=== PATIENT | female | born 1965 | race Caucasian/White ===

== ENCOUNTER → 2018-09-19 15:19 | Outpatient (CLI) | payer MEDICAID, SELFPAY ==
--- NOTE | 2018-09-19 15:39 | MRI_ITS ---
STUDY: MRI OF THE LEFT LOWER EXTREMITY WITHOUT AND WITH CONTRAST REASON FOR EXAM: Female, 53 years old. 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 Follow-up. Evaluate for recurrence. TECHNIQUE: Multisequence multiplanar imaging of the left thigh was obtained before and after the administration of 10 cc of Gadavist contrast intravenously. COMPARISON: Prior MRI of the left femur dated August 08, 2017. FINDINGS: There is stable scar tissue in the medial aspect of the thigh at the site of the prior resection (axial series 11 images 3-16). The hypointense nonenhancing nodule in the medial aspect of the upper thigh is stable and likely related to scarring (axial series 11 images 2-70). There is stable minimal edema of the obturator muscles and adductor muscles with superficial subcutaneous soft tissue edema unchanged (axial series 11 images 2-14). The remainder of the subcutaneous soft tissues, muscles and osseous structures are normal. MRI/Lower Ext No Joint W/WO Cont IMPRESSION: Stable post surgical changes with no evidence of recurrence. Electronically Signed: Brandan Torres MD at 15:49 EST , Service support ,
== END ==
PROVIDERS: Family Provider Family Medicine; PCP Family Medicine; Referring Provider Orthopaedic Surgery; Visit Provider Orthopaedic Surgery
DX: C49.22 Malignant neoplasm of connective and soft tissue of left lower limb, including hip (principal)
CPT/HCPCS: 73720; A9585; A4216

== ENCOUNTER → 2019-06-26 12:49 | Outpatient (CLI) | payer MEDICAID, SELFPAY ==
--- NOTE | 2019-06-26 13:03 | CT_ITS ---
STUDY: CT CHEST WITHOUT CONTRAST REASON FOR EXAM: Female, 54 years old. LT THIGH SARCOMA removed in 2016 with radiation treatments following removal. RADIATION DOSAGE (If Supplied By Facility): CTDIvol = ( 9.35 ) mGy, DLP = ( 306.02 ) mGycm TECHNIQUE: Transaxial imaging was performed without the administration of intravenous contrast material. Individualized dose optimization techniques were used for this CT. COMPARISON: 12/22/2015, 08/08/2017 FINDINGS: The lungs are normal. No dominant mass or nodule. No focal infiltrate. There is no demonstrated pleural abnormality. Normal heart and pericardium. Normal mediastinum. Normal hilar regions. Normal unenhanced pulmonary arteries. Normal aorta arch and descending thoracic aorta. Normal osseous structures. There is no demonstrated acute abnormality of the visualized upper abdomen. Stable 2.9 cm probable cyst of the liver. CT/Chest without Contrast IMPRESSION: Normal unenhanced CT Chest examination. Electronically Signed: Gonzales Parker MD at 17:12 EDT , Service support ,
== END ==
PROVIDERS: Family Provider Family Medicine; PCP Family Medicine; Referring Provider Orthopaedic Surgery; Visit Provider Orthopaedic Surgery
DX: C49.22 Malignant neoplasm of connective and soft tissue of left lower limb, including hip (principal)
CPT/HCPCS: 71250

== ENCOUNTER 2019-10-15 09:10 | Emergency (ER) | payer MEDICAID, SELFPAY ==
[2019-10-15 09:11] VITALS: BP 136/82; PULSE 77; RESP 116; TEMP 36.7; O2SAT 96; BMI 27.2
--- NOTE | 2019-10-15 09:44 | ED.VISSUMM ---
- ER Visit Summary Date of Service: 10/15/19 Chief Complaint: Cough sore throat History of Present Illness: The patient is a 54 F history of prior cancer and anemia. Patient's had cough for last 3 days. Both of her nephews had similar symptoms. She denies any fever or chills. No trouble breathing. No vomiting or diarrhea. Physical Examination: Middle-aged female no acute distress vital signs are stable afebrile. Pulse ox 96% on room air no signs of hypoxia. H EENT exam normal. Posterior pharynx without erythema or exudate. No trouble swallowing or breathing. TMs normal. Neck nontender no lymphadenopathy. Lungs clear to auscultation bilaterally few scattered wheezes that clear.. Heart regular rhythm no murmur. Abdomen soft and nontender. Extremities moves all 4. Calves nontender without edema. Neurologically she is awake and alert. Test Results: None Emergency Department Course and Treatment: Patient has a viral URI. She does not need antibiotics. She does not need imaging. Treatment Plan: Prednisone as needed if the wheezing worsens. Otherwise treat as a virus. Fluids and rest. Disposition: Discharge Impression: Viral URI This note was generated with [employer] dictation software. It may contain incorrect words, spelling, and punctuation that were not noted in review of the chart prior to signing ED Disposition - Plan for ED Patient: Referrals: Julio Lynch DO [Primary Care Provider] -
--- NOTE | 2019-10-15 09:46 | ED.DEP ---
ED Disposition - Plan for ED Patient: Disposition: Home or Assisted Living Instructions: URI, Viral w/ Wheezing (Adult) Prescriptions: Prednisone [Deltasone] 40 mg PO DAILY 7 Days tab Prescription Printed Referrals: Julio Lynch DO [Primary Care Provider] - 1 Week if not improving Additional Instructions: Fluids and rest. Prednisone only if needed if wheezing worsens or shortness of breath.
[2019-10-15 10:13] VITALS: BP 136/82; PULSE 77; RESP 116; TEMP 36.7; O2SAT 96
== END 2019-10-15 10:15 | disposition home or self-care (01) ==
PROVIDERS: Emergency Provider Emergency Medicine; Family Provider Family Medicine; PCP Family Medicine
DX: J06.9 Acute upper respiratory infection, unspecified (principal)
CPT/HCPCS: 99282

== ENCOUNTER → 2020-06-23 | Outpatient (CLI) | payer MEDICARE, MEDICAID, SELFPAY ==
--- NOTE | 2020-06-23 07:57 | CT_ITS ---
STUDY: CT CHEST WITHOUT CONTRAST REASON FOR EXAM: Female, 55 years old. Left thigh sarcoma RADIATION DOSAGE (If Supplied By Facility): CTDIvol = ( 8.23 ) mGy, DLP = ( 273.47 ) mGycm TECHNIQUE: Transaxial imaging was performed without the administration of intravenous contrast material. Coronal and sagittal reformatted images were created. Individualized dose optimization techniques were used for this CT. COMPARISON: Multiple prior studies, with the most recent being 06/26/19. FINDINGS: There are no pulmonary infiltrates or pleural effusions. There are no pulmonary nodules or masses. There is no pneumothorax. The heart and pericardium are within normal limits. There is no thoracic lymphadenopathy. There is no evidence of thoracic aortic aneurysm. Images through the upper abdomen demonstrate no significant abnormality. There are no destructive osseous lesions. CT/Chest without Contrast IMPRESSION: Unremarkable noncontrast CT of the chest. Electronically Signed: Thierno Alas, at 17:06 EDT Tel , Service support ,
== END | disposition home or self-care (01) ==
LOC: CT 07:56
PROVIDERS: PCP Family Medicine; Referring Provider Orthopaedic Surgery; Visit Provider Orthopaedic Surgery
DX: C49.22 Malignant neoplasm of connective and soft tissue of left lower limb, including hip (principal)
CPT/HCPCS: 71250

== ENCOUNTER → 2021-03-26 14:15 | Outpatient (CLI) | payer MEDICARE, MEDICAID, SELFPAY ==
--- NOTE | 2021-03-26 14:20 | CT_ITS ---
STUDY: CT CHEST WITHOUT CONTRAST REASON FOR EXAM: Female, 56 years old. Chest pain/pressure RADIATION DOSAGE (If Supplied By Facility): CTDIvol = ( 5.53 ) mGy, DLP = ( 181.41 ) mGycm TECHNIQUE: Transaxial imaging was performed without the administration of intravenous contrast material. Individualized dose optimization techniques were used for this CT. COMPARISON: 06/23/2020 FINDINGS: The lungs are normal. There is no demonstrated pleural abnormality. Normal heart and pericardium. Normal mediastinum. Normal hilar regions. Normal unenhanced pulmonary arteries. Normal aorta arch and descending thoracic aorta. Normal osseous structures. Limited cuts through the upper abdomen show simple hepatic cyst CT/Chest without Contrast IMPRESSION: No acute pulmonary process No suspicious noncalcified mass or nodule No suspicious adenopathy Simple hepatic cyst, no specific follow-up needed Electronically Signed: Isma Rodas MD at 14:42 EDT , Service support ,
== END ==
PROVIDERS: PCP Family Medicine; Referring Provider Orthopaedic Surgery; Visit Provider Orthopaedic Surgery
DX: C49.22 Malignant neoplasm of connective and soft tissue of left lower limb, including hip (principal)
CPT/HCPCS: 71250

== ENCOUNTER 2022-02-17 13:58 | Inpatient (IN) | payer MEDICARE, MEDICAID, SELFPAY ==
[2022-02-17] VITALS (8 sets, daily range): BP systolic 103–119; BP diastolic 53–79; PULSE 108–120; RESP 16–28; TEMP 37.2–39.5; O2SAT 96–100; BMI 27.2; BMI 29.5
--- NOTE | 2022-02-17 14:11 | EKG12_ITS ---
Test Reason : R LEG PAIN Blood Pressure : / mmHG Vent. Rate : 108 BPM Atrial Rate : 108 BPM P-R Int : 122 ms QRS Dur : 112 ms QT Int : 338 ms P-R-T Axes : 051 037 017 degrees QTc Int : 452 ms Sinus tachycardia Nonspecific ST abnormality Abnormal ECG Confirmed by MIKALA HAM, GINA ([id number]), publication editor CLAY BAUTISTA ([id number]) on 02/21/2022 1:51:37 PM Referred By: NATHEN/DENISSE Confirmed By:KELSEA BACH MD
--- NOTE | 2022-02-17 14:13 | EX.ED.DYSGE1 ---
HPI History of Present Illness Chief Complaint: Fever Detail of Chief Complaint: Fever, erythematous left lower extremity not feeling well Informant: patient Onset/Context/Timing Onset: Today (Noted erythematous left lower extremity) and Days (Illness started Monday) Context: Sudden Onset Timing: Continuous Quality: Infectious symptoms starting Monday and rash L LE today Location: Left lower extremity, thigh and leg excluding foot Current Severity: Moderate Maximum Severity: Moderate Worsened by: Unknown Relieved by: Nothing Associated Symptoms Associated Symptoms: Nausea and vomiting x1 today Narrative Narrative: Is a 57-year-old woman with history of soft tissue neoplasm that was resected several years ago proximal medial left thigh. She states she has had cellulitis one prior time. She states she did not feel well on Monday. She says Monday she had a good day. Today she again did not feel well and noted that her left lower extremity was red. She states her leg is always swollen. Is slightly more swollen at this time. She denies headache, visual, ocular auditory symptoms. She denies cough or shortness of breath. She denies dysuria, frequency, urgency or hematuria. She reports allergy to penicillin. Her allergy is not truly an allergy however patient is insistent that this represents an allergy. Prior similar symptoms: Yes Recent Illness/Hospitalization: No [facility] Medical History (Updated 02/17/22 @ 15:[address] 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 Ck Mercedes MD) household members: spouse Smoking Status: Unknown if ever smoked substance use type: does not use ROS ROS ED Constitutional Constitutional ED: Reports chills, fever(s) and sweats; Denies weight loss Eyes Eyes: Denies blurry vision, change in vision or diplopia ENT ENT ED: Denies ear pain, rhinorrhea or sore throat Cardiovascular Cardiovascular: Denies chest pain, palpitations or racing heartbeat Respiratory/Chest Respiratory/Chest: Denies cough, dyspnea or dyspnea on exertion Gastrointestinal Gastrointestinal: Reports nausea and vomiting; Denies abdominal pain, constipation, diarrhea or melena Genitourinary Genitourinary ED: Denies dysuria, hematuria or urinary frequency Musculoskeletal Musculoskeletal: Reports other Details: Swollen left lower extremity with erythema ; Denies arthralgias, back pain, myalgias or neck pain Integumentary Reports rash and other Details: Rash involves most of the leg and part of the thigh. ; Denies abscess or Abrasions Neurologic Neurologic: Reports weakness; Denies headache(s) or paresthesias Endocrine Endocrinology: Denies polydipsia, polyphagia or polyuria Hematologic/Lymphatic Hematologic/Lymphatic: Denies anemia, easy bleeding, easy bruising or lymphadenopathy EXAM Physical Exam Const Vital Signs: 02/17/22 14:00 02/17/22 14:05 02/17/22 14:14 Temperature 101.5 F H Temperature Source Temporal Pulse Rate 118 H Respiratory Rate 16 Respiratory Effort Normal Respiratory Pattern Normal Blood Pressure 117/79 Blood Pressure Mean 91 Pulse Ox 98 100 Oxygen Delivery Method Room Air Room Air 02/17/22 14:30 02/17/22 14:59 Temperature 102.1 F H Temperature Source Oral Pulse Rate 109 H Respiratory Rate 28 H Respiratory Effort Respiratory Pattern Blood Pressure 104/65 Blood Pressure Mean 78 Pulse Ox 98 Oxygen Delivery Method Room Air Positive well nourished and well developed General Appearance ED: well developed, NAD and pallor; Negative for cyanotic or diaphoretic HEENT Reports TM's clear and dry mucous membranes Negative for trauma or tenderness Tympanic Membrane ED: Yes TM's clear Mouth ED: Yes dry mucous membranes Mouth: dry mucous membranes Eyes PERRL and EOMs intact bilaterally General Eye ED: Negative for pale conjunctiva or scleral icterus Neck no lymphadenopathy, supple and no JVD Chest Wall palpation of chest normal Resp normal respiratory effort and clear to auscultation bilaterally Effort and Inspection: Negative for pain with movement Cardio regular rhythm, S1 normal heart sound, S2 normal heart sound and no murmurs Rate: tachycardic GI normal to inspection, nondistended, normoactive bowel sounds, non-tender and non-distended Palpation: soft Back/Spine no CVA tenderness Cervical Spine: Negative for cervical spine tenderness Thoracic Spine / Upper Back: Negative for thoracic spinal tenderness or paraspinal muscle tenderness Extremity Negative for normal to inspection Extremity Narrative: There is nephric and erythema warmth of the left lower extremity. There is surgical scar which is well-healed. There is shotty inguinal lymphadenopathy noted. There is no fluctuance. There is no lymphangitis. There is pallor of the left foot. There is a palpable DP pulse. Unable to appreciate a PT pulse. General Extremety ED: Yes edema and other findings; Negative for tenderness General Extremity: edema and other findings Neuro oriented x3, CN's II-XII intact bilaterally and no sensory deficits noted Sensorium / Orientation: alert Motor Exam: strength 5/5 throughout Psych mental status grossly normal Skin No no rashes or lesions noted, no wounds and skin turgor normal General Skin Exam: pallor; Negative for jaundice MDM MDM MDM Narrative Medical decision making narrative: Patient presents with infectious source and tachycardia. She is febrile however since her temperature is not greater than 102 she only has 1 sirs criteria. Findings are not consistent with DVT. Findings are consistent with cellulitis. Patient was treated with cefepime since she reports allergy to penicillin. Since there is no prior history of MRSA and there is no concern presently for MRSA vancomycin was not administered. I was informed by nursing staff that blood pressure is approximate 100. Second liter of normal saline was ordered. This will be equivalent to 30 cc/kg. I was informed by the hospitalist Dr. Tarun dubon that she is not considered severe sepsis because she has a Medicare advantage program type insurance and requested admission to [facility]. Lab Data Attestation: I reviewed the patient's lab results. Lab results narrative: White count is elevated with shift. There is no bandemia. Lactate is elevated 2.4. Since patient has total of 4 SIRS criteria with source elevated lactate she has severe sepsis without endorgan dysfunction. Creatinine is elevated for patient at 1.04 and approximately double baseline however per CMS criteria is not considered endorgan dysfunction. Labs: Laboratory Results - last 24 hr 02/17/22 02/17/22 02/17/22 14:30 14:30 14:30 WBC 15.1 H RBC 4.79 Hgb 14.1 Hct 41.7 MCV 87.1 MCH 29.4 MCHC 33.8 RDW Std Deviation 41.0 RDW Coeff of Kehinde 12.8 Plt Count 294 MPV 9.3 Immature Gran % (Auto) 0.500 Neut % (Auto) 93.7 H Lymph % (Auto) 2.7 L [place] % (Auto) 3.0 Eos % (Auto) 0.0 Baso % (Auto) 0.1 Absolute Neuts (auto) 14.2 H Absolute Lymphs (auto) 0.41 L Nucleated RBC % 0 Differential Comment Platelet Estimate ADEQUATE RBC Morphology NORM C+C PT INR APTT Sodium 138 Potassium 3.1 L Chloride 103 Carbon Dioxide 27.0 Anion Gap 8 BUN 17 Creatinine 1.04 H Estim Creat Clear Calc 57.69 Est GFR (MDRD) Af Amer 70 Est GFR (MDRD) Non-Af 58 L BUN/Creatinine Ratio 16.3 Glucose 112 H Lactic Acid 2.4 H* Calcium 9.0 Total Bilirubin 1.10 H AST 74 H ALT 83 H Alkaline Phosphatase 119 H Total Protein 7.8 Albumin 3.7 Globulin 4.1 Albumin/Globulin Ratio 0.9 02/17/22 14:40 WBC RBC Hgb Hct MCV MCH MCHC RDW Std Deviation RDW Coeff of Kehinde Plt Count MPV Immature Gran % (Auto) Neut % (Auto) Lymph % (Auto) [place] % (Auto) Eos % (Auto) Baso % (Auto) Absolute Neuts (auto) Absolute Lymphs (auto) Nucleated RBC % Differential Comment Platelet Estimate RBC Morphology PT 13.9 INR 1.1 APTT 23.7 L Sodium Potassium Chloride Carbon Dioxide Anion Gap BUN Creatinine Estim Creat Clear Calc Est GFR (MDRD) Af Amer Est GFR (MDRD) Non-Af BUN/Creatinine Ratio Glucose Lactic Acid Calcium Total Bilirubin AST ALT Alkaline Phosphatase Total Protein Albumin Globulin Albumin/Globulin Ratio EKG Initial EKG: Attestation: I personally reviewed and interpreted this EKG as follows: Interpretation: Sinus Tachycardia (Ventricular rate is 108. There is no ossific ST-T wave changes noted. SD interval is 122 ms. QRS duration is prolonged at 112 ms. QT interval is 338 ms. Epps is normal. Patient has what appears to be in incomplete right bundle branch block.) Critical Care Time Critical Care Time: Yes Critical care time (excluding procedures): 30-74 minutes (32 minutes), Including time spent: (History, physical, review of prior records, documentation, interpretation laboratory results initiation of treatment for severe sepsis), Discussing w/Patient &/or Family/[employer]le [employer], Discussing w/Consultants and Arranging Admission or Transfer Discharge Plan Dx/Rx/DC Orders Clinical Impression: Cellulitis of left lower extremity without foot, Severe sepsis, Acute hypotension Disposition Disposition: Acute Care Hospital [facility]
[2022-02-17] MEDS: 0.9% Normal Saline 1,000 ML 999 ML IV (14:27)
[2022-02-17] MEDS: Acetaminophen 325 MG Tablet 650 MG PO ×2 (14:29→22:10)
[2022-02-17 14:46] LABS: Absolute Lymphocyte Count 0.41 X10^3/uL (0.83-4.51); Absolute Neutrophil Count 14.2 X10^3/uL (2.0-7.7); Basophil# 0.02 X10^3/uL; Basophil% 0.1 % (0-1); Hematocrit 41.7 % (37-47); Hemoglobin 14.1 g/dL (12.0-15.0); Lymphocyte # 0.41 X10^3/ul (0.83-4.51); Lymphocyte % 2.7 % (19-41); Mean Corp Hgb Conc 33.8 g/dL (32-36); Mean Corpuscular Hgb 29.4 pg (27.0-32.0); Mean Corpuscular Volume 87.1 fL (81-99); Mean Platelet Vol. 9.3 fl (6.2-12.0); Monocyte# 0.46 X10^3/uL; NRBC Flagged by Analyzer 0 % (0-5); Neutrophil # 14.15 X10^3/uL (2.7-7.7); Neutrophil % 93.7 % (47-70); POSITIVE DIFFERENTIAL YES; Platelet Count 294 K/mm3 (150-450); RBC Distribution Width CV 12.8 % (11.6-14.6); Red Blood Count 4.79 M/mm3 (4.2-5.4); White Blood Count 15.1 K/mm3 (4.4-11.0)
[2022-02-17 15:02] LABS: Differential Indicated SCAN CRITERIA MET
[2022-02-17 15:08] LABS: ALB/GLOB Ratio 0.9 RATIO (0.9-2.4); AST(SGOT) 74 U/L (15-37); Alanine Aminotransfer ALT/SGPT 83 U/L (13-56); Albumin, Serum 3.7 g/dL (3.2-5.0); Alkaline Phosphatase 119 U/L (45-117); Anion Gap 8 (5-15); BUN 17 mg/dL (7-18); BUN/Creat Ratio 16.3 RATIO (10-20); Chloride 103 mmol/L (98-107); Creatinine, Serum 1.04 mg/dL (0.55-1.02); EST Glomerular Filtration Rate 58 mL/min (>60); Est Glom Filt Rate - Afr Amer 70 mL/min (>60); Estimated Creatinine Clearance 57.69 ml/min; Globulin 4.1 g/dL (2.2-4.2); Glucose 112 mg/dL (74-106); Potassium 3.1 mmol/L (3.5-5.1); Protein, Total 7.8 g/dL (6.4-8.2); Sodium Level 138 mmol/L (136-145)
[2022-02-17 15:10] LABS: International Normalized Ratio 1.1; Prothrombin Time (Protime)PT. 13.9 SECONDS (11.7-14.9)
[2022-02-17 15:12] LABS: Partial Thromboplast Time 23.7 Seconds (24.1-36.2)
[2022-02-17 15:15] LABS: Platelet Estimate ADEQUATE (ADEQ); Red Cell Morphology NORM C+C NORMAL (NORM C&C)
[2022-02-17 15:30] LABS: Lactic Acid 2.4 mmol/L (0.4-1.9)
[2022-02-17] MEDS: 0.9% Normal Saline 1,000 ML 1000 ML IV (15:44)
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
--- NOTE | 2022-02-17 16:56 | VDLE_ITS ---
Reason For Study: Swelling RIGHT LEFT CFV is compressible, spontaneous, phasic, GSV is normal. competent and demonstrates normal CFV is compressible, spontaneous, phasic, augmentation. competent, and demonstrates normal Procedure augmentation. This is a venous duplex using B-mode, color FV is compressible, spontaneous, phasic, flow and spectral Doppler. competent and demonstrates normal Exam performed portable in patient room. augmentation. A preliminary report was called and/or faxed POP V is compressible, spontaneous, phasic, to MS3. competent and demonstrates normal augmentation. T/P Trunk is compressible. PTV is compressible. LT PerV is compressible. VL/Venous Duplex US, Unilateral Interpretation Summary There is no evidence of left lower extremity deep vein thrombosis. Left great s aphenous vein appears patent and compressible segmentally. Normal flow patterns right common femoral vein Ordering Physician: Manny Dewey Referring Physician: Julio Lynch Performed By: Dayami Adamson, KIMBER, RVT
[2022-02-17] MEDS: 0.9% Normal Saline 1,000 ML 125 ML IV ×2 (17:31→22:03)
[2022-02-17] MEDS: Cefazolin 1 GM/50 ML BAG IV (18:10)
[2022-02-17 18:40] LABS: Reflex Lactate? Y
[2022-02-17] MEDS: Potassium Chloride Oral Tablet 20 MEQ 60 MEQ PO (18:51)
[2022-02-17 19:11] LABS: Bacteria 0 SEEN /hpf (None Seen); Mucous, Urine 0 SEEN /hpf (<or=2+); Red Blood Cells-Urine 0 SEEN /hpf (0-5); Squamous Epithelial Cells - UA 0 SEEN /hpf (5-10); White Blood Cells 0 SEEN /hpf (0-5)
[2022-02-17 19:41] LABS: Color, Urine Yellow (Yellow); Glucose, Dipstick Normal (Normal); Ketone-Dipstick Negative (Negative); Leukocyte Esterase-Dipstick Negative /ul (Negative); Nitrite-Dipstick Negative (Negative); Occult Blood-Urine 25 /ul (Negative); Protein-Dipstick Negative (Negative); Urine Bilirubin Dipstick Negative (Negative); Urine Clarity Clear (Clear); Urine Urobilinogen Normal (Normal)
[2022-02-17] MEDS: Ondansetron 4 MG/2 ML Vial IV (20:46)
[2022-02-18] VITALS (8 sets, daily range): BP systolic 113–121; BP diastolic 57–86; PULSE 94–115; RESP 18; TEMP 37.6–39.3; O2SAT 97–100
[2022-02-18] MEDS: Cefazolin 1 GM/50 ML BAG IV ×4 (00:48→21:06)
[2022-02-18] MEDS: Acetaminophen 325 MG Tablet 650 MG PO ×3 (04:06→21:06)
[2022-02-18] MEDS: 0.9% Normal Saline 1,000 ML 125 ML IV (05:17)
[2022-02-18 05:51] LABS: Absolute Lymphocyte Count 0.84 X10^3/uL (0.83-4.51); Absolute Neutrophil Count 20.7 X10^3/uL (2.0-7.7); Basophil# 0.05 X10^3/uL; Basophil% 0.2 % (0-1); Hematocrit 32.5 % (37-47); Hemoglobin 10.8 g/dL (12.0-15.0); Lymphocyte # 0.84 X10^3/ul (0.83-4.51); Lymphocyte % 3.8 % (19-41); Mean Corp Hgb Conc 33.2 g/dL (32-36); Mean Corpuscular Hgb 28.6 pg (27.0-32.0); Mean Corpuscular Volume 86.2 fL (81-99); Mean Platelet Vol. 9.2 fl (6.2-12.0); Monocyte# 0.47 X10^3/uL; Monocyte% 2.1 % (0-10); NRBC Flagged by Analyzer 0 % (0-5); Neutrophil # 20.68 X10^3/uL (2.7-7.7); POSITIVE DIFFERENTIAL YES; Platelet Count 265 K/mm3 (150-450); RBC Distribution Width SD 40.6 fl (35.1-43.9); Red Blood Count 3.77 M/mm3 (4.2-5.4); White Blood Count 22.3 K/mm3 (4.4-11.0)
[2022-02-18 06:07] LABS: Differential Indicated SCAN CRITERIA MET
[2022-02-18 06:10] LABS: Lactic Acid 1.1 mmol/L (0.4-1.9)
[2022-02-18 06:18] LABS: Anion Gap 6 (5-15); BUN 15 mg/dL (7-18); BUN/Creat Ratio 18.7 RATIO (10-20); Calcium,Total 7.6 mg/dL (8.5-10.1); Chloride 111 mmol/L (98-107); EST Glomerular Filtration Rate 78 mL/min (>60); Est Glom Filt Rate - Afr Amer 95 mL/min (>60); Estimated Creatinine Clearance 81.33 ml/min; Glucose 118 mg/dL (74-106); Potassium 3.4 mmol/L (3.5-5.1); Sodium Level 139 mmol/L (136-145)
[2022-02-18 06:21] LABS: Differential Comment SCANNED
--- NOTE | 2022-02-18 08:02 | PN.HOSP_ITS ---
Subjective Subjective Follow-up on severe sepsis/left lower extremity cellulitis: Patient was seen and examined. She complains of frequent stools. She has had 2 bowel movements today. Denies any fever or chills. Erythema of the left lower extremity is improving. Objective Data Objective Data Vital Signs: Vital Signs Temp Pulse Resp BP Pulse Ox 99.9 F H 105 H 18 113/60 97 02/18/22 06:41 02/18/22 05:18 02/18/22 03:49 02/18/22 03:49 02/18/22 05:18 Oxygen Delivery Method Room Air Weight: 66.4 kg Body Mass Index (BMI) 29.5 Intake & Output: Intake and Output for Last 24 Hours 02/16/22 02/17/22 02/18/22 23:59 23:59 23:59 Intake Total 2839.58 / 2839.58 1091.67 / 1091.67 Balance 2839.58 / 2839.58 1091.67 / 1091.67 Lab / Micro Data Result Diagrams: 02/18/22 05:35 02/18/22 05:35 Labs: Laboratory Results - last 24 hr 02/17/22 14:30: WBC 15.1 H, RBC 4.79, Hgb 14.1, Hct 41.7, MCV 87.1, MCH 29.4, MCHC 33.8, RDW Std Deviation 41.0, RDW Coeff of Kehinde 12.8, Plt Count 294, MPV 9.3, Immature Gran % (Auto) 0.500, Neut % (Auto) 93.7 H, Lymph % (Auto) 2.7 L, [place] % (Auto) 3.0, Eos % (Auto) 0.0, Baso % (Auto) 0.1, Absolute Neuts (auto) 14.2 H, Absolute Lymphs (auto) 0.41 L, Nucleated RBC % 0, Differential Comment , Platelet Estimate ADEQUATE, RBC Morphology NORM C+C 02/17/22 14:30: Sodium 138, Potassium 3.1 L, Chloride 103, Carbon Dioxide 27.0, Anion Gap 8, BUN 17, Creatinine 1.04 H, Estim Creat Clear Calc 57.69, Est GFR (MDRD) Af Amer 70, Est GFR (MDRD) Non-Af 58 L, BUN/Creatinine Ratio 16.3, Glucose 112 H, Calcium 9.0, Total Bilirubin 1.10 H, AST 74 H, ALT 83 H, Alkaline Phosphatase 119 H, Total Protein 7.8, Albumin 3.7, Globulin 4.1, Albumin/Globulin Ratio 0.9 02/17/22 14:30: Lactic Acid 2.4 H* 02/17/22 14:40: PT 13.9, INR 1.1, APTT 23.7 L 02/17/22 18:45: Urine Color Yellow, Urine Clarity Clear, Urine pH 5.0, Ur Specific [place] 1.010, Urine Protein Negative, Urine Glucose (UA) Normal, Urine Ketones Negative, Urine Occult Blood 25 H, Urine Nitrite Negative, Urine Bilirubin Negative, Urine Urobilinogen Normal, Ur Leukocyte Esterase Negative, Urine RBC 0 SEEN, Urine WBC 0 SEEN, Ur Squamous Epith Cells 0 SEEN, Urine Bacteria 0 SEEN, Urine Mucus 0 SEEN 02/18/22 05:35: WBC 22.3 H, RBC 3.77 L, Hgb 10.8 L, Hct 32.5 L, MCV 86.2, MCH 28.6, MCHC 33.2, RDW Std Deviation 40.6, RDW Coeff of [place]hind[place] 13.0, Plt Count 265, MPV 9.2, Immature Gran % (Auto) 0.900, Neut % (Auto) 93.0 H, Lymph % (Auto) 3.8 L, [place] % (Auto) 2.1, Eos % (Auto) 0.0, Baso % (Auto) 0.2, Absolute Neuts (auto) 20.7 H, Absolute Lymphs (auto) 0.84, Nucleated RBC % 0, Differential Comment SCANNED 02/18/22 05:35: Sodium 139, Potassium 3.4 L, Chloride 111 H, Carbon Dioxide 22.0, Anion Gap 6, BUN 15, Creatinine 0.80, Estim Creat Clear Calc 81.33, Est GFR (MDRD) Af Amer 95, Est GFR (MDRD) Non-Af 78, BUN/Creatinine Ratio 18.7, Glucose 118 H, Calcium 7.6 L 02/18/22 05:35: Lactic Acid 1.1 Physical Exam Narrative Physical exam: General: Alert, Oriented x3, Cooperative, No apparent distress HEENT: Atraumatic Oral: Moist Mucosa Neck: Supple Lungs: Diminished to auscultation Cardiovascular: HS I+II, regular, no murmurs Abdomen: Anterior abdominal wall erythema and edema, Bowel Sounds Present, Soft, Non Tender Extremities: Left lower extremity redness and differential warmth, improving, not worse beyond the skin markings Assessment & Plan Assessment/Plan (1) Cellulitis of left lower extremity without foot: (2) Severe sepsis: PLAN: 1. Severe sepsis from left lower extremity cellulitis, improved Improved on IVF, continue on Cefazolin Doppler USG of LLE is pending 2. ANGEL, pre-renal secondary to #1 Admitting creatinine was 1.04, creatinine of 0.8 Repeat blood work in a.m. 3. Hypokalemia, replaced, recheck in am 4. DVT PPx- Lovenox SC Charges/Coding Visit Charges Inpatient E&M: 27687 Subs Hosp L2
[2022-02-18] MEDS: Potassium Chloride Oral Tablet 20 MEQ 40 MEQ PO (08:26)
[2022-02-18] MEDS: Enoxaparin 40 MG/0.4 ML Syringe SC (08:27)
--- NOTE | 2022-02-18 10:45 | CASEMGMT ---
RN CM JANITORIAL TECH CM to room to meet with patient for initial transition planning/care coordination assessment. RN DUSTY introduced self and role at [facility]. Pt voices understanding and consents to assessment at this time. Pt resting in bed in no distress at this time. Pt is A/O at this time and answers all questions appropriately. Care providers, pharmacy, and demographics verified/updated at this time. PCP: Dr Lynch Preferred Pharmacy: [facility] Insurance: KAI Aguillon Prescription Benefit: Yes Living Will/HPOA: States does not have LW or HCPOA . Interested in more information but states does not want to talk with SW at this time to complete paperwork. Provided information on advanced directives and given Social Service rac card with number to call if chooses in the future to utilize [facility] social work for advanced directive completion. Patient expresses understanding. LNOK: , Daniel Living Arrangements: Lives w/ in 2-story home w/no steps to enter. Denies difficulty w/stairs. Independent. Transportation: Pt states drives self and states no transportation concerns at this time. also drives. DME: Denies using any DME, other than compression stockings. Denies needs. HHC/SNF: No hx of either. No needs identified. Pt wishes to return home and states has no concerns with going home at time of discharge. CM to follow for any discharge planning/needs. Pt voices no concerns/needs at this time. Advised pt to ask for CM if any questions/concerns/needs arise. Voices understanding. PLAN: Home Torsten MENJIVAR RN, CM
[2022-02-18 13:02] LABS: Magnesium 1.3 mg/dL (1.6-2.6)
[2022-02-18 13:08] LABS: AST(SGOT) 40 U/L (15-37); Alanine Aminotransfer ALT/SGPT 55 U/L (13-56); Albumin, Serum 2.5 g/dL (3.2-5.0); Alkaline Phosphatase 83 U/L (45-117); Bilirubin, Direct 0.48 mg/dL (0.00-0.30); Globulin 3.5 g/dL (2.2-4.2)
[2022-02-19] MEDS: Acetaminophen 325 MG Tablet 650 MG PO ×2 (04:40→21:13)
[2022-02-19 04:45] VITALS: BP 124/64; PULSE 108; RESP 20; TEMP 38.5; O2SAT 98
[2022-02-19] MEDS: Cefazolin 1 GM/50 ML BAG IV (05:21)
[2022-02-19 07:43] LABS: Absolute Lymphocyte Count 1.26 X10^3/uL (0.83-4.51); Absolute Neutrophil Count 19.1 X10^3/uL (2.0-7.7); Basophil# 0.02 X10^3/uL; Basophil% 0.1 % (0-1); Hemoglobin 10.2 g/dL (12.0-15.0); Lymphocyte # 1.26 X10^3/ul (0.83-4.51); Mean Corpuscular Volume 85.2 fL (81-99); Mean Platelet Vol. 9.8 fl (6.2-12.0); Monocyte# 0.43 X10^3/uL; NRBC Flagged by Analyzer 0 % (0-5); Neutrophil # 19.14 X10^3/uL (2.7-7.7); Neutrophil % 90.8 % (47-70); Platelet Count 279 K/mm3 (150-450); RBC Distribution Width CV 13.3 % (11.6-14.6); RBC Distribution Width SD 41.7 fl (35.1-43.9); Red Blood Count 3.52 M/mm3 (4.2-5.4); White Blood Count 21.1 K/mm3 (4.4-11.0)
[2022-02-19 08:07] LABS: ALB/GLOB Ratio 0.7 RATIO (0.9-2.4); AST(SGOT) 24 U/L (15-37); Alanine Aminotransfer ALT/SGPT 37 U/L (13-56); Albumin, Serum 2.4 g/dL (3.2-5.0); Alkaline Phosphatase 92 U/L (45-117); Anion Gap 6 (5-15); BUN 11 mg/dL (7-18); BUN/Creat Ratio 16.1 RATIO (10-20); Calcium,Total 8.2 mg/dL (8.5-10.1); Chloride 109 mmol/L (98-107); Creatinine, Serum 0.68 mg/dL (0.55-1.02); EST Glomerular Filtration Rate 94 mL/min (>60); Est Glom Filt Rate - Afr Amer 114 mL/min (>60); Estimated Creatinine Clearance 95.68 ml/min; Globulin 3.5 g/dL (2.2-4.2); Glucose 99 mg/dL (74-106); Potassium 3.2 mmol/L (3.5-5.1); Protein, Total 5.9 g/dL (6.4-8.2); Sodium Level 138 mmol/L (136-145)
--- NOTE | 2022-02-19 08:14 | PN.HOSP_ITS ---
Subjective Subjective Follow-up on severe sepsis/left lower extremity cellulitis: Patient was seen and examined. She has been spiking fevers overnight. Her left lower extremity is more swollen. She denies any runny nose or cough. Objective Data Objective Data Vital Signs: Vital Signs Temp Pulse Resp BP Pulse Ox 101.3 F H 108 H 20 H 124/64 H 98 02/19/22 04:45 02/19/22 04:45 02/19/22 04:45 02/19/22 04:45 02/19/22 04:45 Oxygen Delivery Method Room Air Weight: 66.4 kg Body Mass Index (BMI) 29.5 Intake & Output: Intake and Output for Last 24 Hours 02/17/22 02/18/22 02/19/22 23:59 23:59 23:59 Intake Total 2839.58 / 2839.58 2059.59 / 2059.59 550 / 550 Balance 2839.58 / 2839.58 2059.59 / 2059.59 550 / 550 Lab / Micro Data Result Diagrams: 02/19/22 07:20 02/19/22 07:20 Labs: Laboratory Results - last 24 hr 02/18/22 05:35: Total Bilirubin 1.20 H, Direct Bilirubin 0.48 H, AST 40 H, ALT 55, Alkaline Phosphatase 83, Total Protein 6.0 L, Albumin 2.5 L, Globulin 3.5 02/18/22 05:35: Magnesium 1.3 L 02/19/22 07:20: WBC 21.1 H, RBC 3.52 L, Hgb 10.2 L, Hct 30.0 L, MCV 85.2, MCH 29.0, MCHC 34.0, RDW Std Deviation 41.7, RDW Coeff of Kehinde 13.3, Plt Count 279, MPV 9.8, Immature Gran % (Auto) 1.100 H, Neut % (Auto) 90.8 H, Lymph % (Auto) 6.0 L, [place] % (Auto) 2.0, Eos % (Auto) 0.0, Baso % (Auto) 0.1, Absolute Neuts (auto) 19.1 H, Absolute Lymphs (auto) 1.26, Nucleated RBC % 0 02/19/22 07:20: Sodium 138, Potassium 3.2 L, Chloride 109 H, Carbon Dioxide 23.0, Anion Gap 6, BUN 11, Creatinine 0.68, Estim Creat Clear Calc 95.68, Est GFR (MDRD) Af Amer 114, Est GFR (MDRD) Non-Af 94, BUN/Creatinine Ratio 16.1, Glucose 99, Calcium 8.2 L, Total Bilirubin 0.50, AST 24, ALT 37, Alkaline Ph osphatase 92, Total Protein 5.9 L, Albumin 2.4 L, Globulin 3.5, Albumin/Globulin Ratio 0.7 L Micro: Microbiology 02/17/22 18:45 Urine, Clean Catch Urine Culture - Final Culture exhibits no growth. Radiography Diagnostic Testing: Radiology Impression Venous Doppler Study 02/17/22 16:56 Interpretation Summary There is no evidence of left lower extremity deep vein thrombosis. Left great saphenous vein appears patent and compressible segmentally. Normal flow patterns right common femoral vein Ordering Physician: Manny Dewey Referring Physician: Julio Lynch Performed By: Dayami Adamson, KIMBER, RVT Physical Exam Narrative Physical exam: General: Alert, Oriented x3, Cooperative, no apparent distress HEENT: Atraumatic Oral: Moist Mucosa Neck: Supple Lungs: Diminished to auscultation Cardiovascular: HS I+II, regular, no murmurs Abdomen: Anterior abdominal wall erythema and edema, Bowel Sounds Present, Soft, Non Tender Extremities: Left lower extremity redness and differential warmth appears worse today, has moved beyond the skin markings Assessment & Plan Assessment/Plan (1) Cellulitis of left lower extremity without foot: (2) Severe sepsis: PLAN: 1. Severe sepsis from left lower extremity cellulitis Patient now spiking fever; T max 101.3F LLE looks worse today, gone beyond skin markings Doppler USG of LLE is negative WBC remains elevated at 21.1 Will increase cefazolin to 2g Q8h Will check COVID PCR, repeat blood cultures if fevers persist 2. ANGEL, pre-renal secondary to #1, resolved Admitting creatinine was 1.04, creatinine of 0.8 Repeat blood work in a.m. 3. Hypokalemia/hypomagnesemia, replaced, recheck in am 4. DVT PPx- Lovenox SC Charges/Coding Visit Charges Inpatient E&M: 60734 Subs Hosp L2
[2022-02-19 08:21] VITALS: BP 110/58; PULSE 91; RESP 18; TEMP 37.1; O2SAT 98
[2022-02-19 08:22] LABS: Magnesium 1.5 mg/dL (1.6-2.6)
[2022-02-19] MEDS: Potassium Chloride Oral Tablet 20 MEQ 40 MEQ PO (10:36)
[2022-02-19] MEDS: Enoxaparin 40 MG/0.4 ML Syringe SC (10:37)
[2022-02-19] MEDS: Cefazolin 2 GM in 0.9% Normal Saline 100 ML IV ×2 (13:18→21:14)
[2022-02-19 15:26] VITALS: BP 135/70; PULSE 86; RESP 18; TEMP 37.6; O2SAT 98
[2022-02-19 21:27] VITALS: BP 155/87; PULSE 90; RESP 18; TEMP 37.6; O2SAT 98
[2022-02-20 03:10] VITALS: BP 136/74; PULSE 77; RESP 18; TEMP 36.8; O2SAT 97
[2022-02-20 05:57] LABS: Absolute Neutrophil Count 13.3 X10^3/uL (2.0-7.7); Basophil# 0.09 X10^3/uL; Basophil% 0.5 % (0-1); Eosinophil# 0.06 X10^3/uL; Eosinophils% 0.4 % (0-5); Hematocrit 31.1 % (37-47); Hemoglobin 10.7 g/dL (12.0-15.0); Lymphocyte % 11.6 % (19-41); Mean Corp Hgb Conc 34.4 g/dL (32-36); Mean Corpuscular Hgb 28.8 pg (27.0-32.0); Mean Corpuscular Volume 83.6 fL (81-99); Monocyte% 4.9 % (0-10); NRBC Flagged by Analyzer 0 % (0-5); Neutrophil # 13.34 X10^3/uL (2.7-7.7); Platelet Count 245 K/mm3 (150-450); RBC Distribution Width CV 13.2 % (11.6-14.6); RBC Distribution Width SD 40.4 fl (35.1-43.9); Red Blood Count 3.72 M/mm3 (4.2-5.4); White Blood Count 16.5 K/mm3 (4.4-11.0)
[2022-02-20] MEDS: Cefazolin 2 GM in 0.9% Normal Saline 100 ML IV ×3 (06:18→21:50)
[2022-02-20 06:30] LABS: ALB/GLOB Ratio 0.6 RATIO (0.9-2.4); AST(SGOT) 19 U/L (15-37); Alanine Aminotransfer ALT/SGPT 25 U/L (13-56); Albumin, Serum 2.3 g/dL (3.2-5.0); Alkaline Phosphatase 103 U/L (45-117); Anion Gap 7 (5-15); BUN 8 mg/dL (7-18); BUN/Creat Ratio 15.3 RATIO (10-20); Chloride 109 mmol/L (98-107); Creatinine, Serum 0.52 mg/dL (0.55-1.02); EST Glomerular Filtration Rate 128 mL/min (>60); Est Glom Filt Rate - Afr Amer 155 mL/min (>60); Estimated Creatinine Clearance 125.12 ml/min; Globulin 3.8 g/dL (2.2-4.2); Glucose 83 mg/dL (74-106); Potassium 3.4 mmol/L (3.5-5.1); Protein, Total 6.1 g/dL (6.4-8.2); Sodium Level 137 mmol/L (136-145)
--- NOTE | 2022-02-20 07:32 | PN.HOSP_ITS ---
Subjective Subjective Follow-up on severe sepsis/left lower extremity cellulitis: Patient was seen and examined. No fevers overnight. Her left leg remains swollen but the erythema has improved. No diarrhea or nausea. Objective Data Objective Data Vital Signs: Vital Signs Temp Pulse Resp BP Pulse Ox 98.3 F 77 18 136/74 H 97 02/20/22 03:10 02/20/22 03:10 02/20/22 03:10 02/20/22 03:10 02/20/22 03:10 Oxygen Delivery Method Room Air Weight: 66.4 kg Body Mass Index (BMI) 29.5 Intake & Output: Intake and Output for Last 24 Hours 02/18/22 02/19/22 02/20/22 23:59 23:59 23:59 Intake Total 2058.59 / 2058.59 2354 / 2604 360 / 360 Balance 2058. / 2058.59 2354 / 2604 360 / 360 Lab / Micro Data Result Diagrams: 02/20/22 05:37 02/20/22 05:37 Labs: Laboratory Results - last 24 hr 02/19/22 07:20: WBC 21.1 H, RBC 3.52 L, Hgb 10.2 L, Hct 30.0 L, MCV 85.2, MCH 29.0, MCHC 34.0, RDW Std Deviation 41.7, RDW Coeff of [place]hinde 13.3, Plt Count 279, MPV 9.8, Immature Gran % (Auto) 1.100 H, Neut % (Auto) 90.8 H, Lymph % (Auto) 6.0 L, [place] % (Auto) 2.0, Eos % (Auto) 0.0, Baso % (Auto) 0.1, Absolute Neuts (auto) 19.1 H, Absolute Lymphs (auto) 1.26, Nucleated RBC % 0 02/19/22 07:20: Sodium 138, Potassium 3.2 L, Chloride 109 H, Carbon Dioxide 23.0, Anion Gap 6, BUN 11, Creatinine 0.68, Estim Creat Clear Calc 95.68, Est GFR (MDRD) Af Amer 114, Est GFR (MDRD) Non-Af 94, BUN/Creatinine Ratio 16.1, Glucose 99, Calcium 8.2 L, Total Bilirubin 0.50, AST 24, ALT 37, Alkaline Phosphatase 92, Total Protein 5.9 L, Albumin 2.4 L, Globulin 3.5, Albumin/Globulin Ratio 0.7 L 02/19/22 07:20: Magnesium 1.5 L 02/19/22 08:27: COVID-19 (BLAIR) Not Detected 02/20/22 05:37: WBC 16.5 H, RBC 3.72 L, Hgb 10.7 L, Hct 31.1 L, MCV 83.6, MCH 28.8, MCHC 34.4, RDW Std Deviation 40.4, RDW Coeff of [place]hind[place] 13.2, Plt Count 245, MPV 10.0, Immature Gran % (Auto) 1.600 H, Neut % (Auto) 81.0 H, Lymph % (Auto) 11.6 L, [place] % (Auto) 4.9, Eos % (Auto) 0.4, Baso % (Auto) 0.5, Absolute Neuts (auto) 13.3 H, Absolute Lymphs (auto) 1.90, Nucleated RBC % 0 02/20/22 05:37: Sodium 137, Potassium 3.4 L, Chloride 109 H, Carbon Dioxide 21.0, Anion Gap 7, BUN 8, Creatinine 0.52 L, Estim Creat Clear Calc 125.12, Est GFR (MDRD) Af Amer 155, Est GFR (MDRD) Non-Af 128, BUN/Creatinine Ratio 15.3, Glucose 83, Calcium 8.0 L, Total Bilirubin 0.40, AST 19, ALT 25, Alkaline Phosphatase 103, Total Protein 6.1 L, Albumin 2.3 L, Globulin 3.8, Albumin/Globulin Ratio 0.6 L Micro: Microbiology 02/17/22 14:30 Blood Culture (Wb) - Anticubital Left Blood Culture - Preliminary No growth in 48 hours. 02/17/22 14:35 Blood Culture (Wb) - Right Hand Blood Culture - Preliminary No growth in 48 hours. 02/17/22 18:45 Urine, Clean Catch Urine Culture - Final Culture exhibits no growth. Physical Exam Narrative Physical exam: General: Alert, oriented x3, cooperative, no apparent distress HEENT: Atraumatic Oral: Moist Mucosa Neck: Supple Lungs: Diminished to auscultation Cardiovascular: HS I+II, regular, no murmurs Abdomen: Anterior abdominal wall erythema and edema, improved, bowel sounds present, soft, non tender Extremities: Left lower extremity redness and differential warmth improved,erythema is almost gone but leg is swollen +1-2, some differential warmth still persists. Assessment & Plan Assessment/Plan (1) Cellulitis of left lower extremity without foot: (2) Severe sepsis: PLAN: 1. Severe sepsis from left lower extremity cellulitis, improved No more fever. COVID PCR is negative. LLE slightly improved Doppler USG of LLE is negative WBC improved to 16.5 Continue on IV cefazolin 2g Q8h 2. ANGEL, pre-renal secondary to #1, resolved Admitting creatinine was 1.04, creatinine of 0.8 Repeat blood work in a.m. 3. Hypokalemia/hypomagnesemia, replaced, recheck in am 4. DVT PPx- Lovenox SC Charges/Coding Visit Charges Inpatient E&M: 77599 Subs Hosp L2
[2022-02-20 08:41] VITALS: BP 139/75; PULSE 80; RESP 18; TEMP 36.9; O2SAT 96
[2022-02-20] MEDS: Potassium Chloride Oral Tablet 20 MEQ 40 MEQ PO ×2 (08:48→17:58)
[2022-02-20] MEDS: 0.9% Saline Lock 10 ML Syringe IV (08:48)
[2022-02-20] MEDS: Enoxaparin 40 MG/0.4 ML Syringe SC (08:48)
[2022-02-20 14:11] VITALS: BP 131/74; PULSE 88; RESP 16; TEMP 36.7; O2SAT 100
[2022-02-20 20:11] VITALS: BP 137/75; PULSE 80; RESP 16; TEMP 36.7; O2SAT 96
[2022-02-20] MEDS: Acetaminophen 325 MG Tablet 650 MG PO (21:50)
[2022-02-21 03:40] VITALS: BP 138/75; PULSE 80; RESP 16; TEMP 36.6; O2SAT 99
[2022-02-21] MEDS: Cefazolin 2 GM in 0.9% Normal Saline 100 ML IV ×2 (06:18→14:07)
[2022-02-21] MEDS: Enoxaparin 40 MG/0.4 ML Syringe SC (08:22)
[2022-02-21] MEDS: Potassium Chloride Oral Tablet 20 MEQ 40 MEQ PO (08:22)
[2022-02-21] MEDS: Acetaminophen 325 MG Tablet 650 MG PO (08:28)
[2022-02-21 08:44] LABS: Hematocrit 34.3 % (37-47); Hemoglobin 11.8 g/dL (12.0-15.0); Mean Corp Hgb Conc 34.4 g/dL (32-36); Mean Corpuscular Hgb 29.1 pg (27.0-32.0); Mean Corpuscular Volume 84.7 fL (81-99); Mean Platelet Vol. 9.6 fl (6.2-12.0); POSITIVE COUNT YES; POSITIVE MORPHOLOGY YES; Platelet Count 346 K/mm3 (150-450); RBC Distribution Width CV 13.1 % (11.6-14.6); RBC Distribution Width SD 40.5 fl (35.1-43.9); Red Blood Count 4.05 M/mm3 (4.2-5.4); White Blood Count 11.7 K/mm3 (4.4-11.0)
[2022-02-21 09:08] LABS: Differential Indicated MANUAL DIFF
[2022-02-21 09:10] LABS: Anion Gap 7 (5-15); BUN 8 mg/dL (7-18); BUN/Creat Ratio 16.3 RATIO (10-20); Calcium,Total 8.1 mg/dL (8.5-10.1); Chloride 105 mmol/L (98-107); Creatinine, Serum 0.49 mg/dL (0.55-1.02); EST Glomerular Filtration Rate 138 mL/min (>60); Est Glom Filt Rate - Afr Amer 167 mL/min (>60); Estimated Creatinine Clearance 132.78 ml/min; Glucose 92 mg/dL (74-106); Potassium 3.7 mmol/L (3.5-5.1); Sodium Level 137 mmol/L (136-145)
[2022-02-21 09:23] LABS: Neutrophil-Band 2 % (0-5); Neutrophil-Segmented 67 % (47-70); Total Cells Counted 100 (MANUAL DIFF)
[2022-02-21 09:24] LABS: Eosinophil 1 % (0-5); Lymphocyte 20 % (19-41); Monocyte 7 % (0-10); Myelocyte 3 % (0-0)
[2022-02-21 09:30] LABS: Platelet Estimate ADEQUATE (ADEQ)
[2022-02-21 09:31] LABS: Red Cell Morphology N CYTIC NORMAL (NORM C&C)
[2022-02-21 09:32] LABS: Anisocytosis 1+
[2022-02-21 09:34] LABS: Absolute Neutrophil Count 8.1 X10^3/uL (2.0-7.7)
[2022-02-21 09:40] VITALS: BP 139/89; PULSE 76; RESP 15; TEMP 36.7; O2SAT 96
--- NOTE | 2022-02-21 11:33 | DS.PCM_ITS ---
Providers Date of Admission: 02/17/22 Primary Care Physician: Dr. Julio Lynch DO Reason For Visit: CELLULITIS Diagnosis Discharge Diagnosis (1) Cellulitis of left lower extremity without foot: Status: Acute Code(s): L03.116 - Cellulitis of left lower limb (2) Severe sepsis: Status: Acute Code(s): A41.9 - Sepsis, unspecified organism; R65.20 - Severe sepsis without septic shoc k Medications at Discharge Home Medications cephalexin 500 mg PO TID #15 cap 02/21/22 Hospital Course Procedures None Summary of Care Provided Minutes Spent on Discharge: 45 Hospital Course: Patient is a 57-year-old female with a past medical history as outlined was admitted through the ED on 02/17/2022 with a complaint of redness and warmth of her left lower extremity. She also had associated mild fever. She denied any recent trauma to the leg and also said it was a bit more swollen than her right leg. 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 She was also found to have elevated white cell count of 15 and was also tachypneic and tachycardic and her fever was up to 102 Fahrenheit. She was admitted and managed for severe sepsis due to cellulitis of the left lower extremity. She was started on IV Ancef. Duplex of the left lower extremity was negative for any evidence of DVT. Redness and swelling gradually improved significantly and she felt much better. She was able to weight-bear on her left lower extremity. She remained stable and was discharged home on 02/21/2022. She was discharged with a 5 day course of PO keflex 500mg tid x 5 days. She is follow-up with her primary care doctor in 1 to 2 weeks. Patient seen and examined prior to discharge. She had no active complaints and said the redness and swelling was much better. Review of symptoms otherwise negative. Labs and vitals reviewed. Home medication reviewed and reconciled. Physical Exam Const alert, oriented x3 and no apparent distress General Appearance: cooperative, comfortable and well kempt Orientation / Consciousness: awake Exam Limitations: no limitations HEENT normocephalic, head/scalp atraumatic, hearing grossly normal bilaterally and moist oral mucous membranes Eyes PERRL, EOMs intact bilaterally and conjunctivae normal Neck no lymphadenopathy, supple and no JVD Resp normal respiratory effort, no retractions, no use of accessory muscles and clear to auscultation bilaterally Cardio regular rate, regular rhythm, S1 normal heart sound, S2 normal heart sound and no murmurs GI normal to inspection, nondistended, normoactive bowel sounds, soft to palpation and non-tender Extremity Extremity Narrative: minimal swelling of LLE; erythema has resolved. No tenderness. Skin Skin Narrative: erythema has resolved Neuro oriented x3, CN's II-XII intact bilaterally and moves all extremities Sensorium / Orientation: awake and alert Psych affect normal Weight / BMI Weight Weight: 146 lb 6.191 oz Body Mass Index (BMI) 29.5 ABG / Lab / Microbiology Data Result Diagrams: 02/21/22 08:30 02/21/22 08:30 Laboratory: Laboratory Results - last 24 hr 02/21/22 08:30: WBC 11.7 H, RBC 4.05 L, Hgb 11.8 L, Hct 34.3 L, MCV 84.7, MCH 29.1, MCHC 34.4, RDW Std Deviation 40.5, RDW Coeff of [place]hind[place] 13.1, Plt Count 346, MPV 9.6, Neut % (Auto) Not Reportable, Absolute Neuts (auto) 8.1 H, Absolute Lymphs (auto) 2.30, Total Counted 100, Neutrophils % (Manual) 67, Band Neutrophils % 2, Lymphocytes % (Manual) 20, Monocytes % (Manual) 7, Eosinophils % (Manual) 1, Myelocytes % 3 H, Diff Path Review May , Platelet Estimate ADEQUATE, RBC Morphology N CYTIC, Anisocytosis 1+ 02/21/22 08:30: Sodium 137, Potassium 3.7, Chloride 105, Carbon Dioxide 25.0, Anion Gap 7, BUN 8, Creatinine 0.49 L, Estim Creat Clear Calc 132.78, Est GFR (MDRD) Af Amer 167, Est GFR (MDRD) Non-Af 138, BUN/Creatinine Ratio 16.3, Glucose 92, Calcium 8.1 L Microbiology: Microbiology 02/17/22 14:30 Blood Culture (Wb) - Anticubital Left Blood Culture - Preliminary No growth in 48 hours. 02/17/22 14:35 Blood Culture (Wb) - Right Hand Blood Culture - Preliminary No growth in 48 hours. 02/17/22 18:45 Urine, Clean Catch Urine Culture - Final Culture exhibits no growth. D/C Instructions Discharge Diet: Low fat / Low cholesterol Discharge Activity: Return to Normal Activity Weight Bearing Status: Weight bearing as tolerated Call your doctor if you observe: Fever of 101 or Higher, Shortness of breath, Swelling in the ankles and Increased palpitations (irregular heartbeat) Meaningful Use Info Meaningful Use Diagnoses (Choose all that apply): None applicable Discharge Plan Admission Admit Date/Time: 02/17/22 15:38 Primary Reason for Your Visit: LLE cellulitis Attending Provider: Dafne Ozuna Primary Care Provider: Julio Lynch Discharge Orders/Prescriptions Prescriptions: New cephalexin 500 mg capsule 500 mg PO TID Qty: 15 RF: 0 Referrals / Follow Up: Julio Lynch DO [Primary Care Provider] - Disposition Disposition (needs filled in before D/C Order can be placed): Home, Self Care Charges/Coding Visit Charges Inpatient E&M: 24410 Disch Hosp
[2022-02-21 14:04] VITALS: BP 145/95; PULSE 75; RESP 16; TEMP 36.5; O2SAT 98
--- NOTE | 2022-02-21 14:46 | PHA.DC.MC ---
Pharmacy Service has performed discharge medication reconciliation and counseling for this patient. 1. CEPHALEXIN 500MG PO TID X 5 DAYS The patient's discharge medication list was reviewed for discrepancies and discrepancies were resolved. Home Medications cephalexin 500 mg PO TID #15 cap 02/21/22 The patient was counseled on the following discharge medications and changes in medications for homegoing were reviewed. The Reason for Use, instructions for use, and potential side effects were reviewed for all new medications. The patient's questions regarding all of their medications were answered. The patient was able to verbally demonstrate an understanding of their discharge medications.
[2022-02-22 13:16] LABS: Pathologist Review Reviewed
== END 2022-02-21 16:31 | disposition home or self-care (01) | DRG 603 ==
LOC: ED 15:43 → MS3 15:55
PROVIDERS: Internal Medicine; Admitting Provider Family Medicine; Emergency Provider Emergency Medicine; PCP Family Medicine; Visit Provider Student in an Organized Health Care Education/Training Program
DX: L03.116 Cellulitis of left lower limb (principal); N17.9 Acute kidney failure, unspecified; E87.6 Hypokalemia; Z20.822 Contact with and (suspected) exposure to COVID-19
CPT/HCPCS: 36415; 80048; 80053; 80076; 81001; 83605; 83735; 85025; 85610; 85730; 87040; 87086; 87635; 93005; 93971; 99284; J7030; A4216; J2405; U0003; U0005

== ENCOUNTER → 2022-10-11 | Outpatient (CLI) | payer MEDICARE, MEDICAID, SELFPAY ==
[2022-10-11 17:42] LABS: Absolute Lymphocyte Count 2.43 X10^3/uL (0.83-4.51); Absolute Neutrophil Count 4.3 X10^3/uL (2.0-7.7); Basophil# 0.05 X10^3/uL; Basophil% 0.7 % (0-1); Eosinophils% 2.7 % (0-5); Hematocrit 39.6 % (37-47); Lymphocyte # 2.43 X10^3/ul (0.83-4.51); Lymphocyte % 32.7 % (19-41); Mean Corp Hgb Conc 32.8 g/dL (32-36); Mean Corpuscular Hgb 28.3 pg (27.0-32.0); Mean Corpuscular Volume 86.3 fL (81-99); Mean Platelet Vol. 9.5 fl (6.2-12.0); Monocyte# 0.48 X10^3/uL; Monocyte% 6.5 % (0-10); NRBC Flagged by Analyzer 0 % (0-5); Neutrophil # 4.26 X10^3/uL (2.7-7.7); Neutrophil % 57.1 % (47-70); Platelet Count 417 K/mm3 (150-450); RBC Distribution Width CV 13.3 % (11.6-14.6); RBC Distribution Width SD 41.4 fl (35.1-43.9); Red Blood Count 4.59 M/mm3 (4.2-5.4); White Blood Count 7.4 K/mm3 (4.4-11.0)
[2022-10-11 18:10] LABS: AST(SGOT) 16 U/L (15-37); Alanine Aminotransfer ALT/SGPT 34 U/L (13-56); Albumin, Serum 3.5 g/dL (3.2-5.0); Alkaline Phosphatase 89 U/L (45-117); Anion Gap 7 (5-15); BUN 15 mg/dL (7-18); BUN/Creat Ratio 21.4 RATIO (10-20); Calcium,Total 8.5 mg/dL (8.5-10.1); Chloride 106 mmol/L (98-107); EST Glomerular Filtration Rate 91 mL/min (>60); Est Glom Filt Rate - Afr Amer 110 mL/min (>60); Ferritin 40 ng/mL (8-252); Globulin 3.6 g/dL (2.2-4.2); Glucose 90 mg/dL (74-106); Iron 53 ug/dL (50-170); Potassium 3.8 mmol/L (3.5-5.1); Protein, Total 7.1 g/dL (6.4-8.2); Sodium Level 140 mmol/L (136-145)
[2022-10-11 18:26] LABS: Vitamin B12 430 pg/mL (211-911)
== END | disposition home or self-care (01) ==
LOC: BFHLAB 16:02
PROVIDERS: PCP Family Medicine; Visit Provider Family Medicine
DX: Z00.00 Encounter for general adult medical examination without abnormal findings (principal); D64.9 Anemia, unspecified
CPT/HCPCS: 36415; 80053; 82607; 82728; 83540; 85025

== ENCOUNTER → 2022-11-04 | Outpatient (CLI) | payer MEDICARE, MEDICAID, SELFPAY ==
--- NOTE | 2022-11-04 13:51 | CT_ITS ---
INDICATION: MALIGNANT NEOPLASM OF CONNECTIVE TISSUE EXAMINATION: CT CHEST WITHOUT CONTRAST - CT Chest W/O Contrast Injection TECHNIQUE: Helically acquired images were obtained of the chest. A radiation dose optimization technique was used for this scan. IV Contrast dosage and agent: None. COMPARISON: 03/26/2021 FINDINGS: LUNGS, PLEURA AND LARGE AIRWAYS: No masses, consolidation, or edema. No pleural effusion or thickening. No pneumothorax. THYROID: No thyroid lesions. HEART AND PERICARDIUM: Heart size is normal. No pericardial effusion. Scant coronary artery calcifications. VESSELS: Thoracic aorta is not dilated. MEDIASTINUM AND IVIS: No mediastinal or hilar adenopathy. Esophagus is unremarkable. No hiatal hernia. UPPER ABDOMEN: No acute pathology. Stable hepatic cyst. BONES: No suspicious lytic or blastic abnormality. CT/Chest without Contrast IMPRESSION: Unremarkable study. No significant interval change from prior examination. Electronically Signed: Willi Ballard MD at 21:30 [facility] ,
== END | disposition home or self-care (01) ==
LOC: CT 13:50
PROVIDERS: PCP Family Medicine; Visit Provider Orthopaedic Surgery
DX: I25.10 Atherosclerotic heart disease of native coronary artery without angina pectoris (principal); C49.22 Malignant neoplasm of connective and soft tissue of left lower limb, including hip
CPT/HCPCS: 71250

== ENCOUNTER → 2024-06-17 | Outpatient (CLI) | payer MEDICARE, MEDICAID, SELFPAY ==
--- NOTE | 2024-06-17 11:20 | RAD_ITS ---
INDICATION: COUGH EXAMINATION/TECHNIQUE: X-RAY - XR Chest 2 Views COMPARISON: No relevant prior comparison study available FINDINGS: LINES/DEVICES: None. LUNGS: Mild right lower lobe infiltrate concerning for pneumonia. No evidence of pleural effusions MEDIASTINUM AND CARDIOVASCULAR STRUCTURES: Cardiac silhouette not enlarged. Central airways and mediastinal contour are unremarkable. BONES AND SOFT TISSUES: Unremarkable. RAD/Chest PA and Lateral IMPRESSION: Mild right lower lung infiltrate concerning for pneumonia. Electronically Signed: Hector Greer MD at 12:03 EDT ,
== END | disposition home or self-care (01) ==
LOC: RAD 11:03
PROVIDERS: PCP Family Medicine; Referring Provider Family Medicine; Visit Provider Family Medicine
DX: R05.9 Cough, unspecified (principal)
CPT/HCPCS: 71046